=== PATIENT | female | born 1955 | race American Indian/Alaskan Native ===

== ENCOUNTER 2018-07-14 11:46 | Emergency (ER) | payer OTHER ==
[2018-07-14 11:56] VITALS: RESP 18; TEMP 97.8; O2SAT 100; BMI 32.2
--- NOTE | 2018-07-14 13:05 | ED PDOC ---
Arrival/HPI - General Chief Complaint: Headache Historian: Patient - History of Present Illness Narrative History of Present Illness (Text): 07/14/18 13:05 62yo female with pmhx of hypertension who present to ED with complaint of headache and elevated BP. States she stopped taking her blood pressure medication over a year ago because she didn't like the way it made her feel. States she as having a mild frontal headache and checked her BP and it was el evated. She came to ED for another medication. Denies chest pain, SOB, diaphoresis, nausea, vomiting, focal weakness, visual changes, slurred speech, any other complaint. Past Medical History - Provider Review Nursing Documentation Reviewed: Yes - Infectious Disease Hx of Infectious Diseases: None - Reproductive Menopause: Yes - Cardiac Hx Cardiac Disorders: Yes Hx Hypertension: Yes - Psychiatric Hx Substance Use: No - Anesthesia Hx Anesthesia: No Family/Social History - Physician Review Nursing Documentation Reviewed: Yes Family/Social History: Unknown Family HX Smoking Status: Unknown If Ever Smoked Hx Alcohol Use: No Hx Substance Use: No Allergies/Home Meds Allergies/Adverse Reactions: Allergies No Known Allergies Allergy (Verified 07/14/18 12:35) Review of Systems - Physician Review All systems were reviewed & negative as marked: Yes - Review of Systems Constitutional: Normal Eyes: Normal ENT: Normal Respiratory: Normal Cardiovascular: Normal Gastrointestinal: Normal Genitourinary Female: Normal Musculoskeletal: Normal Skin: Normal Neurological: Headache. absent: Dizziness, Focal Weakness Endocrine: Normal Hemo/Lymphatic: Normal Psychiatric: Normal Physical Exam Vital Signs Reviewed: Yes Vital Signs Temp Pulse Resp BP Pulse Ox 07/14/18 11:50 97.8 F 93 H 18 194/105 H 100 Temperature: Afebrile Blood Pressure: Hypertensive Pulse: Regular Respiratory Rate: Normal Appearance: Positive for: Well-Appearing, Non-Toxic, Comfortable Pain Distress: None Mental Status: Positive for: Alert and Oriented X 3 - Systems Exam Head: Present: Atraumatic, Normocephalic Pupils: Present: PERRL Extroacular Muscles: Present: EOMI Conjunctiva: Present: Normal Mouth: Present: Moist Mucous Membranes Neck: Present: Normal Range of Motion Respiratory/Chest: Present: Clear to Auscultation, Good Air Exchange. No: Respiratory Distress, Accessory Muscle Use Cardiovascular: Present: Regular Rate and Rhythm, Normal S1, S2. No: Murmurs Abdomen: No: Tenderness, Distention, Peritoneal Signs Back: Present: Normal Inspection Upper Extremity: Present: Normal Inspection. No: Cyanosis, Edema Lower Extremity: Present: Normal Inspection. No: Edema Neurological: Present: GCS=15, CN II-XII Intact, Speech Normal, Motor Func Grossly Intact, Normal Sensory Function, Normal Cerebellar Funct, Norm Deep T endon Reflexes, Gait Normal, Memory Normal, Normal 2Pt Descrimination, Other (No focal neurological deficit) Skin: Present: Warm, Dry, Normal Color. No: Rashes Psychiatric: Present: Alert, Oriented x 3, Normal Insight, Normal Concentration Medical Decision Making ED Course and Treatment: 07/14/18 14:56 62yo female present with complaint of hypertension and headache. Pt have history of hypertension and have not taken any medication in over a year now. She was not in any distress in ED. Neurologically intact. she denied visual changes, focal weakness, slurred speech, slurred speech, chest pain, SOB, dizziness in ED. She was treated with Norvasc 10mg and Tylenol 650mg in ED On re evaluation she remained neurologically intact and her BP improved. She was DC home with a rx of Norvasc 5mg. referred to the clinic. - Medication Orders Current Medication Orders: Discontinued Medications Acetaminophen (Tylenol 325mg Tab) 650 mg PO STAT STA Stop: 07/14/18 12:36 Amlodipine Besylate (Norvasc) 10 mg PO STAT STA Stop: 07/14/18 12:36 Disposition/Present on Arrival - Present on Arrival Any Indicators Present on Arrival: No History of DVT/PE: No History of Uncontrolled Diabetes: No Urinary Catheter: No History of Decub. Ulcer: No History Surgical Site Infection Following: None - Disposition Have Diagnosis and Disposition been Completed?: Yes Diagnosis: Hypertension, Headache Disposition: HOME/ ROUTINE Disposition Time: 14:30 Patient Plan: Discharge Condition: STABLE Discharge Instructions (ExitCare): High Blood Pressure in Adults Additional Instructions: Follow up with your Doctor/Clinic Return to ED for any new or worsening symptoms Prescriptions: amLODIPine [Norvasc] 5 mg PO DAILY #12 tab Referrals: Evon Hall MD [Medical Doctor] - Follow up with primary Forms: [employer] (Sao Tomean)
[2018-07-14 14:28] VITALS: BP 125/91; PULSE 77
--- NOTE | 2018-07-14 18:10 | CARD ---
APPROVED REPORT Date of service: 07/14/2018 EKG Measurement Heart [id number] <Conclusion> Normal sinus rhythm Moderate voltage criteria for LVH, may be normal variant Nonspecific ST and T wave abnormality
== END 2018-07-14 14:47 | disposition home or self-care (01) ==
LOC: ED 11:46
DX: I10 Essential (primary) hypertension (principal); R51 Headache

== ENCOUNTER 2018-10-04 13:51 | Emergency (ER) | payer OTHER ==
[2018-10-04 14:04] VITALS: BMI 27.4
[2018-10-04 14:10] VITALS: RESP 18; TEMP 97.7
[2018-10-04] MEDS ORDERED: Insulin Regular 1 UNITS/0.01 ML ML SC STA ×2 (15:52→17:33)
--- NOTE | 2018-10-04 17:20 | ED PDOC ---
Arrival/HPI - General Chief Complaint: High Blood Pressure Time Seen by Provider: 10/04/18 14:19 Historian: Patient - History of Present Illness Narrative History of Present Illness (Text): 10/04/18 17:09 63yo female with past medical history of hypertension, Diabetes who present for medication prescription. states she have not taken any of her medications for over 2weeks now, because it was causing her to have diarrhea. Notes that she is not having any more diarrhea, but came to emergency department for prescription. She denies chest pain, SOB, diaphoresis, abdominal pain, fever, chills, dizziness, polyuria/phagia/dipsia, any other complaint. Past Medical History - Provider Review Nursing Documentation Reviewed: Yes - Infectious Disease Hx of Infectious Diseases: None - Cardiac Hx Cardiac Disorders: Yes Hx Hypertension: Yes - Pulmonary Hx Respiratory Disorders: No - Neurological Hx Neurological Disorder: No - HEENT Hx HEENT Disorder: No - Renal Hx Renal Disorder: No - Endocrine/Metabolic Hx Endocrine Disorders: No - Hematological/Oncological Hx Blood Disorders: No - Integumentary Hx Dermatological Disorder: No - Musculoskeletal/Rheumatological Hx Musculoskeletal Disorders: No - Gastrointestinal Hx Gastrointestinal Disorders: No - Genitourinary/Gynecological Hx Genitourinary Disorders: No - Psychiatric Hx Psychophysiologic Disorder: No Hx Substance Use: No - Anesthesia Hx Anesthesia: No Family/Social History - Physician Review Nursing Documentation Reviewed: Yes Family/Social History: Unknown Family HX Smoking Status: Unknown If Ever Smoked Hx Alcohol Use: No Hx Substance Use: No Allergies/Home Meds Allergies/Adverse Reactions: Allergies No Known Allergies Allergy (Verified 10/04/18 14:15) Home Medications: Home Meds Medication Instructions Recorded Confirmed RX: Atenolol [Tenormin] 25 mg PO DAILY 10/04/18 10/04/18 RX: Losartan [Cozaar] 50 mg PO DAILY 10/04/18 10/04/18 RX: Metformin HCl [Glucophage] 1,000 mg PO DAILY 10/04/18 10/04/18 RX: hydroCHLOROthiazide 25 mg PO DAILY 10/04/18 10/04/18 [Hydrodiuril] amLODIPine [Norvasc] 10 mg PO DAILY 10/04/18 10/04/18 Review of Systems - Physician Review All systems were reviewed & negative as marked: Yes - Review of Systems Constitutional: Normal, Other (Hypertension and medication refill) Eyes: Normal ENT: Normal Respiratory: Normal Cardiovascular: Normal Gastrointestinal: Normal Genitourinary Female: Normal Musculoskeletal: Normal Skin: Normal Neurological: Normal Endocrine: Normal Hemo/Lymphatic: Normal Psychiatric: Normal Physical Exam Vital Signs Reviewed: Yes Vital Signs Temp Pulse Resp BP BP Pulse Ox 10/04/18 15:32 78 18 155/115 H 96 10/04/18 14:15 186/125 H 10/04/18 14:04 97.7 F 88 18 237/133 H 96 Temperature: Afebrile Blood Pressure: Hypertensive Pulse: Regular Respiratory Rate: Normal Appearance: Positive for: Well-Appearing, Non-Toxic, Comfortable Pain Distress: None Mental Status: Positive for: Alert and Oriented X 3 Finger Stick Blood Glucose: 306 - Systems Exam Head: Present: Atraumatic, Normocephalic Pupils: Present: PERRL Extroacular Muscles: Present: EOMI Conjunctiva: Present: Normal Mouth: Present: Moist Mucous Membranes Neck: Present: Normal Range of Motion Respiratory/Chest: Present: Clear to Auscultation, Good Air Exchange. No: Respiratory Distress, Accessory Muscle Use Cardiovascular: Present: Regular Rate and Rhythm, Normal S1, S2. No: Murmurs Abdomen: No: Tenderness, Distention, Peritoneal Signs Back: Present: Normal Inspection Upper Extremity: Present: Normal Inspection. No: Cyanosis, Edema Lower Extremity: Present: Normal Inspection. No: Edema Neurological: Present: GCS=15, CN II-XII Intact, Speech Normal, Motor Func Grossly Intact, Normal Sensory Function, Normal Cerebellar Funct, Norm Deep Tendon Reflexes, Gait Normal, Memory Normal Skin: Present: Warm, Dry, Normal Color. No: Rashes Psychiatric: Present: Alert, Oriented x 3, Normal Insight, Normal Concentration Medical Decision Making ED Course and Treatment: 10/04/18 19:29 63yo female in emergency department for stated history. She was not in any distress. She was hypertensive and her FS was elevated. PT noted that she did not take her medications for 2weeks. She denied any somatic complaint in emergency department . Her BP improved in emergency department when she took her own antihypertensives as was directed by her PMD Her BS improved with insulin in emergency department . She was DC home with Glimperide, hence she couldn't tolerate Metformin SE and was strongly advised to monitor her BS and follow up with the clinic. Advised TRT emergency department for any new or worsening symptoms - Medication Orders Current Medication Orders: Discontinued Medications Insulin Human Regular (Humulin R) 6 units SC ONCE STA Stop: 10/04/18 15:53 Last Admin: 10/04/18 16:12 Dose: 6 unit MAR Blood Glucose Document 10/04/18 16:12 KV (Rec: 10/04/18 16:[address] [facility]-ER-21) Blood Glucose Finger Stick Blood Glucose (70-120) 306 Subcutaneous Administrations Document 10/04/18 16:12 KV (Rec: 10/04/18 16:[address] [facility] [place]-ER-21) Injection Site MAR Injection Site Right Abdomen Charges for Administration # of Subcutaneous Administrations 1 Disposition/Present on Arrival - Present on Arrival Any Indicators Present on Arrival: No History of DVT/PE: No History of Uncontrolled Diabetes: No Urinary Catheter: No History of Decub. Ulcer: No History Surgical Site Infection Following: None - Disposition Have Diagnosis and Disposition been Completed?: Yes Diagnosis: Hypertension, Hyperglycemia Disposition: HOME/ ROUTINE Disposition Time: 19:00 Patient Plan: Discharge Condition: STABLE Discharge Instructions (ExitCare): High Blood Pressure in Adults, Blood Glucose Monitoring Additional Instructions: Follow up with the clinic Return to emergency department for any new or worsening symptoms Prescriptions: RX: GlipiZIDE [Glucotrol] 5 mg PO DAILY #10 tab Referrals: PCP,NO [Primary Care Provider] - Follow up with primary Evon Hall MD [Medical Doctor] - Follow up with primary Forms: [employer] (Hebrew)
[2018-10-04 18:05] VITALS: BP 144/93; PULSE 76; O2SAT 98
== END 2018-10-04 19:09 | disposition home or self-care (01) ==
LOC: ED 13:51
DX: I10 Essential (primary) hypertension (principal); E11.65 Type 2 diabetes mellitus with hyperglycemia

== ENCOUNTER 2018-10-23 16:07 | Emergency (ER) | payer OTHER ==
[2018-10-23 16:07] VITALS: BMI 27.4
[2018-10-23 16:41] VITALS: TEMP 99.8
[2018-10-23] MEDS ORDERED: Sodium Chloride 0.9% 500 ML IV STA (16:49)
--- NOTE | 2018-10-23 17:11 | ED PDOC ---
Arrival/HPI - General Chief Complaint: High Blood Sugar Time Seen by Provider: 10/23/18 16:11 Historian: Patient - History of Present Illness Narrative History of Present Illness (Text): 10/23/18 16:45 63 year old female, with past medical history of hypertension and diabetes, presents to the ED for evaluation of elevated blood sugar prior to arrival. Patient informs running out of her diabetes medication after taking her dose this morning, prompting her to present to the clinic prior to arrival. At the clinic, patient was reported to have elevated blood sugar and was subsequently referred to the ED for medical evaluation. Patient denies any somatic complaints. Patient denies any fevers, chills, headache, dizziness, chest pain, shortness of breath, dyspnea on exertion, cough, abdominal pain, nausea, vomiting, diarrhea, back pain, neck pain, or any other complaints. Time/Duration: Prior to Arrival Symptom Onset: Gradual Symptom Course: Unchanged Activities at Onset: Light Context: Other (Referred by Dr. Hall) Past Medical History - Provider Review Nursing Documentation Reviewed: Yes - Infectious Disease Hx of Infectious Diseases: None - Reproductive Menopause: Yes - Cardiac Hx Cardiac Disorders: Yes Hx Hypertension: Yes - Pulmonary Hx Respiratory Disorders: No - Neurological Hx Neurological Disorder: No - HEENT Hx HEENT Disorder: No - Renal Hx Renal Disorder: No - Endocrine/Metabolic Hx Endocrine Disorders: No - Hematological/Oncological Hx Blood Disorders: No - Integumentary Hx Dermatological Disorder: No - Musculoskeletal/Rheumatological Hx Musculoskeletal Disorders: No - Gastrointestinal Hx Gastrointestinal Disorders: No - Genitourinary/Gynecological Hx Genitourinary Disorders: No - Psychiatric Hx Psychophysiologic Disorder: No Hx Substance Use: No - Anesthesia Hx Anesthesia: No Family/Social History - Physician Review Nursing Documentation Reviewed: Yes Family/Social History: No Known Family HX Smoking Status: Unknown If Ever Smoked Hx Alcohol Use: No Hx Substance Use: No Allergies/Home Meds Allergies/Adverse Reactions: Allergies No Known Allergies Allergy (Verified 10/04/18 14:15) Home Medications: Home Meds Medication Instructions Recorded Confirmed RX: Atenolol [Tenormin] 25 mg PO DAILY 10/04/18 10/23/18 RX: Losartan [Cozaar] 50 mg PO DAILY 10/04/18 10/23/18 RX: hydroCHLOROthiazide 25 mg PO DAILY 10/04/18 10/23/18 [Hydrodiuril] amLODIPine [Norvasc] 10 mg PO DAILY 10/04/18 10/23/18 Review of Systems - Physician Review All systems were reviewed & negative as marked: Yes - Review of Systems Constitutional: absent: Fevers Respiratory: absent: SOB, Cough Cardiovascular: absent: Chest Pain Gastrointestinal: absent: Abdominal Pain, Diarrhea, Nausea, Vomiting Genitourinary Female: absent: Dysuria, Urine Output Changes Musculoskeletal: absent: Back Pain, Neck Pain Skin: absent: Rash Neurological: absent: Headache, Dizziness Psychiatric: absent: Anxiety Physical Exam Vital Signs Reviewed: Yes Vital Signs Temp Pulse Resp BP Pulse Ox 10/23/18 16:36 99.8 F H 66 20 168/96 H 98 10/23/18 16:08 99.6 F 66 20 168/96 H 98 Temperature: Afebrile Blood Pressure: Hypertensive Pulse: Regular Respiratory Rate: Normal Appearance: Positive for: Well-Appearing, Non-Toxic, Comfortable Pain Distress: None Mental Status: Positive for: Alert and Oriented X 3 Finger Stick Blood Glucose: 224 - Systems Exam Head: Present: Atraumatic, Normocephalic Pupils: Present: PERRL Extroacular Muscles: Present: EOMI Conjunctiva: Present: Normal Mouth: Present: Moist Mucous Membranes Neck: Present: Normal Range of Motion Respiratory/Chest: Present: Clear to Auscultation, Good Air Exchange. No: Respiratory Distress, Accessory Muscle Use Cardiovascular: Present: Regular Rate and Rhythm, Normal S1, S2. No: Murmurs Abdomen: No: Tenderness, Distention, Peritoneal Signs Back: Present: Normal Inspection Upper Extremity: Present: Normal Inspection. No: Cyanosis, Edema Lower Extremity: Present: Normal Inspection. No: Edema Neurological: Present: GCS=15, CN II-XII Intact, Speech Normal Skin: Present: Warm, Dry, Normal Color. No: Rashes Psychiatric: Present: Alert, Oriented x 3, Normal Insight, Normal Concentration Medical Decision Making ED Course and Treatment: 10/23/18 16:48 Impression: 63 year old female presents to the ED for evaluation of elevated blood sugar. ro dka infectious etilogy Plan: -- Labs -- IV Fluids -- Urinalysis -- Reassess and disposition Prior Visits: Notes and results from previous visits were reviewed. Progress Notes: 10/23/18 20:51 lasb neg bicarb 27 no e/o of dka. ua neg. pt in nad stable for outpt managment. - Medication Orders Current Medication Orders: Sodium Chloride (Sodium Chloride 0.9%) 500 mls @ 999 mls/hr IV .Q31M STA Stop: 10/23/18 17:19 - Scribe Statement The provider has reviewed the documentation as recorded by the Scribe Regan Frankel. All medical record entries made by the Scribe were at my direction and personally dictated by me. I have reviewed the chart and agree that the record accurately reflects my personal performance of the history, physical exam, medical decision making, and the department course for this patient. I have also personally directed, reviewed, and agree with the discharge instructions and disposition. Disposition/Present on Arrival - Present on Arrival Any Indicators Present on Arrival: No History of DVT/PE: No History of Uncontrolled Diabetes: No Urinary Catheter: No History of Decub. Ulcer: No History Surgical Site Infection Following: None - Disposition Have Diagnosis and Disposition been Completed?: Yes Diagnosis: Hyperglycemia Disposition: HOME/ ROUTINE Disposition Time: 18:00 Condition: STABLE Discharge Instructions (ExitCare): Hyperglycemia, Adult (DC) Additional Instructions: follow up with your doctor and discuss your medications with your doctor. return to er with any worsening. Referrals: FAMILY PROVIDER,NO [Primary Care Provider] - Follow up with primary Forms: [employer] (Swiss)
[2018-10-23 17:27] LABS: BASO # 0.02 K/mm3 (0.0-2.0); BASO % 0.3 % (0.0-3.0); EOS # 0.2 (0.0-0.7); EOS % 2.8 % (1.5-5.0); HEMOGLOBIN 15.4 g/dL (12.0-16.0); LYMPH # 3.3 (1.2-3.4); LYMPH % 50.7 % (22.0-35.0); MEAN CELL VOLUME 84.5 fl (80.0-105.0); MEAN CORPUSCULAR HEMOGLOBIN 29.2 pg (25.0-35.0); MEAN CORPUSCULAR HGB CONC 34.5 g/dl (31.0-37.0); MEAN PLATELET VOLUME 12.8 fl (7.0-11.0); MONO # 0.4 (0.1-0.6); RBC 5.28 10^6/uL (3.5-6.1); RED CELL DISTRIBUTION WIDTH 13.5 % (11.5-14.5); WHITE BLOOD COUNT 6.5 10^3/uL (4.5-11.0)
[2018-10-23 17:32] LABS: ALB/GLOB RATIO 1.4 (1.1-1.8); ALBUMIN 4.9 g/dL (3.0-4.8); ALT/SGPT 28 U/L (7-56); AST/SGOT 34 U/L (14-36); BLOOD UREA NITROGEN 11 mg/dL (7-21); GFR NON-AFRICAN AMERICAN > 60
[2018-10-23 17:41] LABS: INR 1.08; PARTIAL THROMBOPLASTIN TIME 28.1 Seconds (26.9-38.3)
[2018-10-23 18:11] LABS: URINE BILIRUBIN NEGATIVE (NEGATIVE); URINE BLOOD NEGATIVE (NEGATIVE); URINE GLUCOSE (UA) >=1000 mg/dL (NEGATIVE); URINE LEUKOCYTE ESTERASE NEGATIVE Leu/uL (NEGATIVE); URINE PROTEIN NEGATIVE mg/dL (<30 mg/dL); URINE UROBILINOGEN 0.2 E.U./dL (<1 E.U./dL)
[2018-10-23 18:19] LABS: URINE APPEARANCE CLEAR (CLEAR); URINE COLOR STRAW (YELLOW)
[2018-10-23 18:42] VITALS: BP 144/79; PULSE 63; RESP 18; O2SAT 97
== END 2018-10-23 18:45 | disposition home or self-care (01) ==
LOC: ED 16:07
DX: E11.65 Type 2 diabetes mellitus with hyperglycemia (principal); I10 Essential (primary) hypertension
CPT/HCPCS: 80053; 81003; 85025; 85610; 85730; 99284; J7040

== ENCOUNTER 2018-11-29 15:20 | Outpatient (CLI) | payer OTHER | END 2018-11-29 15:21 | disposition home or self-care (01) | LOC: RAD 15:20 ==